=== PATIENT | female | born 1970 | race Caucasian/White ===

== ENCOUNTER → 2016-07-23 | Outpatient (CLI) | payer BC ==
--- NOTE | 2016-07-23 14:58 | MRI ---
EXAM DESCRIPTION: MR LUMBAR SPINE WITHOUT IV CONTRAST CLINICAL HISTORY: LUMBAR RADICULOPATHY COMPARISON: None. TECHNIQUE: Multiplanar MRI of the lumbar spine was performed without contrast. GENERAL Lumbar vertebral bodies show normal height without compression deformity. Normal alignment of the lumbar spine is seen. Conus medullaris terminates at T12 and is unremarkable. The visualized intra-abdominal and retroperitoneal structures are unremarkable. L1-2 No significant findings. L2-3 No significant findings. L3-4 No significant findings. L4-5 Mild bilateral facet hypertrophy is seen without significant spinal canal stenosis or foraminal encroachment. L5-S1 Desiccation of the disc space and moderate loss of disc space height is seen. Mild bilateral facet hypertrophic and degenerative changes are noted. Mild far lateral disc osteophytic ridging to the right is seen encroaching on the L5 nerve root beyond the neural foramen. Mild to moderate bilateral foraminal encroachment is seen. There are Modic type 2 degenerative endplate signal changes at this level. IMPRESSION: Moderate disc degenerative changes at L5-S1 are seen contributing to mild to moderate bilateral foraminal encroachment. Mild right far lateral disc osteophytic ridging at L5-S1 mildly encroaches on the L5 nerve root beyond the neural foramen. Mild facet arthropathy L4 through S1. Electronically signed by: Arnol Lua MD 07/23/2016 14:55
== END | disposition home or self-care (01) ==
LOC: MRI 13:19
PROVIDERS: ATTEND Family Medicine
DX: M54.5 Low back pain (principal)

== ENCOUNTER → 2018-03-30 | Outpatient (CLI) | payer BC | LOC: GMAH 18:28 | PROVIDERS: ATTEND Family Medicine | DX: N30.00 Acute cystitis without hematuria (principal) ==

== ENCOUNTER → 2018-04-06 | Outpatient (CLI) | payer BC | LOC: GMAH 18:13 | PROVIDERS: ATTEND Family Medicine | DX: N39.0 Urinary tract infection, site not specified (principal) ==

== ENCOUNTER → 2018-04-08 | Outpatient (CLI) | payer BC ==
--- NOTE | 2018-04-08 15:57 | CT ---
EXAM DESCRIPTION: Abdoment/Pelvis w/o Contrast CLINICAL HISTORY: 48 years Female, R31.0 N20.0 COMPARISON: None available. TECHNIQUE: Contiguous 3 mm axial images were obtained from the lung bases to the level of the proximal femora without the administration of intravenous or oral contrast. Sagittal and coronal reconstructions were reviewed. FINDINGS: Limited evaluation of the solid organs due to the lack of intravenous contrast. THORAX: The imaged lower thorax demonstrates no gross abnormality. LIVER: The liver demonstrates normal size and density with no intrahepatic biliary ductal dilatation. GALLBLADDER: Grossly unremarkable. PANCREAS: Appears normal with no cystic or solid lesions. SPLEEN: Normal ADRENAL GLANDS: Normal with no nodules or masses. KIDNEYS: Both kidneys are symmetric in size and contour with no hydronephrosis or nephrolithiasis or perinephric fluid collections. The visualized ureters appear grossly unremarkable. STOMACH: The stomach is well-distended with no gross abnormality. SMALL BOWEL: The small bowel loops demonstrate variable degrees of distention with no abnormal dilatation or other signs to suggest bowel obstruction. LARGE BOWEL: Moderate to large amount of fecal material is noted throughout the colon, consistent with constipation. The appendix is well-visualized and appears normal No evidence of free intraperitoneal air . RETROPERITONEUM: The abdominal aorta is nonaneurysmal with no significant atherosclerosis. The inferior vena cava is normal in size and caliber. No abnormally enlarged retroperitoneal lymph nodes are identified. URINARY BLADDER:The urinary bladder is well-distended with no gross abnormality. The uterus and adnexa appear normal. Trace free fluid is noted in the pelvis. ADDITIONAL FINDINGS: None. BONES: Mild degenerative changes are identified in the visualized bones.No evidence of osteophytic or osteoblastic lesions. IMPRESSION: Constipation. Otherwise no acute process is noted within the abdomen and pelvis. This exam was performed according to our departmental dose-optimization program, which includes automated exposure control, adjustment of the mA and/or kV according to patient size and/or use of iterative reconstruction technique. Electronically signed by: Magali Natarajan MD 04/08/2018 3:55 PM CDT
== END ==
LOC: CT 13:02
PROVIDERS: ATTEND Family Medicine
DX: R31.0 Gross hematuria (principal); N20.0 Calculus of kidney; N39.0 Urinary tract infection, site not specified; K59.00 Constipation, unspecified

== ENCOUNTER → 2019-07-01 | Outpatient (CLI) | payer BC ==
--- NOTE | 2019-07-02 09:32 | MRI ---
Study: MRI of the Left Ankle. Indication: LEFT ANKLE PAIN Technique: Multiplanar, multi sequence MRI of the left ankle was obtained without intravenous contrast. Comparison: None. Findings: Low-grade tendinosis critical zone and distal Achilles tendon without tear. Trace retrocalcaneal bursal fluid. Mild plantar calcaneal heel spurring with minimal internal marrow edema. No rupture of the plantar fascia. No acute fracture or talar coalition. Small to moderate tibiotalar joint effusion with small subtalar joint effusion. Marrow edema within the medial malleolus and to a lesser extent the medial talus, likely reflecting sequelae previous inversion injury. Intervening partial-thickness tearing of the deep deltoid ligament noted with sprains of the spring ligament, superficial deltoid ligament, and calcaneofibular ligament. Prior partial thickness tearing and poor definition anterior talofibular ligament. Associated prior sprain of the anterior tibiofibular ligament. Ankle mortise alignment normal. Talar dome intact. Mild tibiotalar joint osteoarthritis. Moderate tenosynovitis medial tendons and peroneal tendons. High-grade tendinosis of the posterior tibialis tendinosis and longitudinal split tearing extending from the level of the distal tibial metaphysis to its insertion site but without rupture. Reactive marrow edema and subcortical cystic change of the posterior margin of the medial malleolus. Tendinosis and mild longitudinal fissuring of the brevis tendon inferior to the lateral malleolus without rupture. Anterior tendons intact. Impression: Tenosynovitis of the medial tendons with long segment, high-grade tendinosis and longitudinal split tearing posterior tibialis tendon. No rupture. Reactive marrow edema within the posterior margin medial malleolus. Tenosynovitis peroneal tendons with subtle tendinosis and longitudinal fissuring of the brevis tendon. No rupture. Findings suggestive of a prior inversion injury with kissing contusions of the medial malleolus and medial talus. Alternatively, this edema could be reactive to the posterior tibial tendon changes. Correlation for prior trauma recommended. There are changes of prior sprains/tears multiple medial and lateral ankle ligaments as detailed above. Mild tibiotalar joint osteoarthritis with a small to moderate joint effusion. Low-grade insertional Achilles tendinosis. Additional findings as above. Electronically signed by: Akhil Eisenberg MD 07/02/2019 9:31 AM [facility]
== END ==
LOC: MRI 13:46
PROVIDERS: ATTEND Nurse Practitioner Family
DX: M65.872 Other synovitis and tenosynovitis, left ankle and foot (principal); M76.62 Achilles tendinitis, left leg; M24.272 Disorder of ligament, left ankle; M19.072 Primary osteoarthritis, left ankle and foot; M25.472 Effusion, left ankle